=== PATIENT | female | born 1945 | race Caucasian/White ===

== ENCOUNTER → 2025-03-07 09:33 | Day surgery (SDC) | payer OTHER, SELFPAY ==
--- NOTE | 2025-03-07 10:56 | ITS.CL.CARDI ---
[employer] - Cardioversion
Cardioversion
Procedure Report:
Procedure: DC cardioversion for persistent atrial fibrillation
Patient interviewed and examined. Consent obtained. Timeout performed.
Anesthesia: Propofol
Cardioversion technique: Synchronized biphasic 200 J shock with patches in the AP position
Results: Normal sinus rhythm
Complications: None
Conclusion: Successful cardioversion for persistent atrial fibrillation
No medication changes.
Follow-up to our office arranged.
== END ==
LOC: CATH 09:33
PROVIDERS: ATTENDING PHYSICIAN Nuclear Medicine Nuclear Cardiology; FAMILY PHYSICIAN Nurse Practitioner; OTHER PHYSICIAN Internal Medicine Interventional Cardiology
DX: I48.19 Other persistent atrial fibrillation (principal); E66.01 Morbid (severe) obesity due to excess calories; E78.2 Mixed hyperlipidemia; Z79.01 Long term (current) use of anticoagulants; Z79.899 Other long term (current) drug therapy; I10 Essential (primary) hypertension
CPT/HCPCS: 92960; 93005